=== PATIENT | female | born 1960 | race Caucasian/White ===

== ENCOUNTER → 2018-08-03 | Outpatient (CLI) | payer BC ==
[~2018-08-03] MED LIST: OMNIPAQUE 350 MG/ML, 100ML BOTTLE ONE
[2018-08-03 10:09] LABS: CREATININE 0.69 mg/dL (0.55-1.02)
== END | disposition home or self-care (01) ==
LOC: RAD 09:06
PROVIDERS: ATTEND Surgery
DX: Z01.812 Encounter for preprocedural laboratory examination (principal); C50.911 Malignant neoplasm of unspecified site of right female breast; C50.912 Malignant neoplasm of unspecified site of left female breast; K57.30 Diverticulosis of large intestine without perforation or abscess without bleeding
CPT/HCPCS: 36415; 71260; 74177; 78306; 82565; 84520; A9503; Q9967

== ENCOUNTER → 2018-08-05 | Outpatient (CLI) | payer BC ==
[~2018-08-05] MED LIST changes: +LIDOCAINE 1%, 20ML ONE; +LIDOCAINE 1%-EPI 1:100K, 20ML ONE; -OMNIPAQUE 350 MG/ML, 100ML BOTTLE ONE; +SODIUM BICARBONATE 4.0%, 5ML ONE
== END | disposition home or self-care (01) ==
LOC: CFH 11:57
PROVIDERS: ATTEND Surgery
DX: C50.912 Malignant neoplasm of unspecified site of left female breast (principal); C50.911 Malignant neoplasm of unspecified site of right female breast
CPT/HCPCS: 19285; 77066; J3490

== ENCOUNTER 2018-08-12 08:54 | Day surgery (SDC) | payer BC ==
[~2018-08-12] VITALS: Ht 170.2 cm; Wt 108.2 kg
[2018-08-12 09:28] VITALS: BP 160/88
[2018-08-12] MEDS ORDERED: ACETAMINOPHEN 500 MG TABLET PO ONE (09:30)
[2018-08-12] MEDS ORDERED: ONDANSETRON ODT 8 MG PO ONE (09:30)
[2018-08-12] MEDS ORDERED: SCOPOLAMINE PATCH, 1.5MG PATCH.TD72 TD ONE (09:30)
[2018-08-12 09:38] VITALS: BP 160/88
[2018-08-12] MEDS ORDERED: LACTATED RINGERS 1,000 ML IV SCH (09:50)
[2018-08-12] MEDS ORDERED: LEVO150T PO (10:19)
[2018-08-12] MEDS ORDERED: lidocaine patch TD (10:19)
[2018-08-12] MEDS ORDERED: CELE200C PO (10:19)
[2018-08-12] MEDS ORDERED: DULO30CA2 PO (10:19)
[2018-08-12] MEDS ORDERED: HEPARIN 1,000 UNITS/ML, 10ML ONE (10:32)
[2018-08-12] MEDS ORDERED: BUPIVACAINE/PF-EPI 0.5% 1:200K ONE (10:32)
[2018-08-12] MEDS ORDERED: MIDAZOLAM 1 MG/ML, 2ML ONE (10:42)
[2018-08-12] MEDS ORDERED: FENTANYL PF 100 MCG/2ML ONE (10:42)
[2018-08-12] MEDS ORDERED: ONDANSETRON 2MG/ML, 2ML ONE (10:43)
[2018-08-12] MEDS ORDERED: DEXAMETHASONE 4 MG/ML, 1ML ONE (10:43)
[2018-08-12] MEDS ORDERED: OXYcodone 5 MG/5 ML ORAL.SOL UDC ONE (11:50)
[2018-08-12] MEDS ORDERED: MIDAZOLAM 1 MG/ML, 2ML IV PRN (12:00)
[2018-08-12] MEDS ORDERED: EPHEDRINE 50 MG/ML, 1ML IVPush PRN (12:00)
[2018-08-12] MEDS ORDERED: PROMETHAZINE 12.5 MG SUPP PR PRN (12:00)
[2018-08-12] MEDS ORDERED: PROMETHAZINE 25 MG/ML, 1ML IV PRN (12:00)
[2018-08-12] MEDS ORDERED: MEPERIDINE/PF 25MG/0.5ML IVPush PRN (12:00)
[2018-08-12] MEDS ORDERED: ONDANSETRON 2MG/ML, 2ML IV PRN (12:00)
[2018-08-12] MEDS ORDERED: MORPHINE SULFATE 4 MG/ML, 1ML IVPush PRN (12:00)
[2018-08-12] MEDS ORDERED: HALOPERIDOL 5 MG/ML IV PRN (12:00)
[2018-08-12] MEDS ORDERED: HYDROmorphone 2 MG/ML, 1ML IVPush PRN (12:00)
[2018-08-12] MEDS ORDERED: OXYcodone 5 MG/5 ML ORAL.SOL UDC PO PRN (12:00)
[2018-08-12] MEDS ORDERED: ONDANSETRON ODT 8 MG PO PRN (12:00)
[2018-08-12] MEDS ORDERED: hydrALAzine 20 MG/ML, 1ML IV PRN (12:00)
[2018-08-12] MEDS ORDERED: LABETALOL 5MG/ML, 20ML IV PRN (12:00)
[2018-08-12] MEDS ORDERED: FENTANYL PF 100 MCG/2ML IV PRN (12:00)
[2018-08-12] MEDS ORDERED: DIAZEPAM 5 MG/ML, 2ML IVPush PRN (12:00)
[2018-08-12] MEDS ORDERED: ALBUTEROL SULFATE 2.5 MG/3 ML NPPB PRN (12:00)
[2018-08-12] MEDS ORDERED: PROPOFOL 10 MG/ML, 20ML ONE (14:40)
== END 2018-08-12 13:00 | disposition home or self-care (01) ==
LOC: OUT 08:54
PROVIDERS: ATTEND Surgery
DX: Z45.2 Encounter for adjustment and management of vascular access device (principal); C50.112 Malignant neoplasm of central portion of left female breast; C50.811 Malignant neoplasm of overlapping sites of right female breast; Z17.0 Estrogen receptor positive status [ER+]; I10 Essential (primary) hypertension; E03.9 Hypothyroidism, unspecified; J44.9 Chronic obstructive pulmonary disease, unspecified; R35.0 Frequency of micturition; E66.9 Obesity, unspecified; Z68.37 Body mass index [BMI] 37.0-37.9, adult; F17.210 Nicotine dependence, cigarettes, uncomplicated; Z86.19 Personal history of other infectious and parasitic diseases; Z79.1 Long term (current) use of non-steroidal anti-inflammatories (NSAID); Z79.890 Hormone replacement therapy; Z79.899 Other long term (current) drug therapy; Z88.0 Allergy status to penicillin; Z88.8 Allergy status to other drugs, medicaments and biological substances; Z80.0 Family history of malignant neoplasm of digestive organs; Z98.890 Other specified postprocedural states
CPT/HCPCS: 36561; 71045; 77001; 93005; C1788; J1100; J1644; J2250; J2405; J2704; J3010; J7120; Q0162

== ENCOUNTER → 2019-04-05 | Outpatient (CLI) | payer BC ==
[~2019-04-05] MED LIST changes: +CELE200C PO; +DULO30CA2 PO; +LACT1CAP37 PO; +LEVO150T PO; -LIDOCAINE 1%, 20ML ONE; -LIDOCAINE 1%-EPI 1:100K, 20ML ONE; +LORA10TA75 PO; +MULT-516 PO; +PERT420V IV; -SODIUM BICARBONATE 4.0%, 5ML ONE; +TRAS150V IV; +TURM500C4 PO; +[UNRECOGNIZED DRUG - CODE] PO; +lidocaine patch TD
[2019-04-05 14:29] LABS: BASOPHILS # (AUTO) 0.01 x10^3/uL (0-0.1); BASOPHILS % (AUTO) 0 % (0-1); EOSINOPHILS # (AUTO) 0.12 x10^3/uL (0-0.4); EOSINOPHILS % (AUTO) 2 % (1-7); LYMPHOCYTES # (AUTO) 1.29 x10^3/uL (1-3.4); LYMPHOCYTES % (AUTO) 18 % (22-44); MD NO; MEAN CORPUSCULAR HEMOGLOBIN 31.7 pg (27.0-34.8); MEAN CORPUSCULAR HGB CONC 33.2 g/dL (32.4-35.8); MEAN CORPUSCULAR VOLUME 95.4 fL (80-100); MEAN PLATELET VOLUME 6.9 fL (7.4-10.4); MONOCYTES # (AUTO) 0.48 x10^3/uL (0.2-0.8); MONOCYTES % (AUTO) 7 % (2-9); NEUTROPHILS # (AUTO) 5.34 x10^3/uL (1.8-6.8); NEUTROPHILS % (AUTO) 74 % (42-75); PLATELET COUNT 360 x10^3/uL (130-400); RED BLOOD COUNT 4.55 x10^6/uL (3.82-5.3); RED CELL DISTRIBUTION WIDTH 14.8 % (9.6-15.2)
== END | disposition home or self-care (01) ==
LOC: LAB 13:55
PROVIDERS: ATTEND Internal Medicine Hematology & Oncology
DX: C50.811 Malignant neoplasm of overlapping sites of right female breast (principal); C50.812 Malignant neoplasm of overlapping sites of left female breast; D70.1 Agranulocytosis secondary to cancer chemotherapy; K59.1 Functional diarrhea; B02.9 Zoster without complications; Z79.01 Long term (current) use of anticoagulants
CPT/HCPCS: 36415; 85025

== ENCOUNTER 2019-04-19 13:33 | Emergency (ER) | payer BC ==
[~2019-04-19] VITALS: Ht 170.2 cm; Wt 105.0 kg
[2019-04-19] MEDS ORDERED: SODIUM CHLORIDE FLUSH 10ML SYR IVF ONE (14:00)
[2019-04-19 14:22] LABS: BASOPHILS # (AUTO) 0.04 x10^3/uL (0-0.1); BASOPHILS % (AUTO) 1 % (0-1); EOSINOPHILS # (AUTO) 0.22 x10^3/uL (0-0.4); EOSINOPHILS % (AUTO) 4 % (1-7); LYMPHOCYTES # (AUTO) 1.15 x10^3/uL (1-3.4); LYMPHOCYTES % (AUTO) 19 % (22-44); MD NO; MEAN CORPUSCULAR HEMOGLOBIN 31.2 pg (27.0-34.8); MEAN CORPUSCULAR HGB CONC 33.6 g/dL (32.4-35.8); MEAN PLATELET VOLUME 7.3 fL (7.4-10.4); MONOCYTES # (AUTO) 0.53 x10^3/uL (0.2-0.8); MONOCYTES % (AUTO) 9 % (2-9); NEUTROPHILS # (AUTO) 3.99 x10^3/uL (1.8-6.8); NEUTROPHILS % (AUTO) 67 % (42-75); PLATELET COUNT 223 x10^3/uL (130-400); RED BLOOD COUNT 4.81 x10^6/uL (3.82-5.3); RED CELL DISTRIBUTION WIDTH 15.7 % (9.6-15.2)
--- NOTE | 2019-04-19 14:23 | NUR ---
TASK RN: PT AMBULATED STEADILY TO ROOM FROM LOBBY. PT W CO INTERMITTENT HAUSER X TWO WEEKS AND L ARM N/T/PAIN X SEVERAL DAYS "I FEEL LIKE I HIT IT ON SOMETHING". GROSS NEURO INTACT, PT DENIES CHANGES IN SPEECH OR VISION. DENIES N/V. HX OF BREAST CANCER WITH DOUBLE MASTECTOMY. CURRENTLY UNDERGOING CHEMO. REPORTS INTERMITTENT HAUSER SINCE START OF CHEMO. FAMILY PRESENT. ERP AT BEDSIDE FOR INITIAL ASSESSMENT. BP/SPO2/ECG MONITORING IN PLACE.
[2019-04-19 14:30] LABS: ALANINE AMINOTRANSFERASE 30 U/L (12-78); ALBUMIN 3.9 g/dL (3.4-5.0); ANION GAP 4 mmol/L (5-15); CALCIUM 9.7 mg/dL (8.5-10.1); CHLORIDE 104 mmol/L (98-107); CREATININE 0.71 mg/dL (0.55-1.02)
[2019-04-19 14:33] LABS: ALKALINE PHOSPHATASE 108 U/L (45-117); BILIRUBIN,TOTAL 0.2 mg/dL (0.2-1.0)
--- NOTE | 2019-04-19 14:37 | NUR ---
Received report from ISABELA Harry. All questions answered. Assuming care of pt at this time.
[2019-04-19 15:17] VITALS: BP 152/90
--- NOTE | 2019-04-19 15:19 | NUR ---
Pt rating 5/10 headache. Pt declines medication for pain at this time. Called CT for ETA of pt's scans, per CT there is one pt ahead of this pt.
--- NOTE | 2019-04-19 15:40 | NUR ---
Pt sent to CT on anupam.
--- NOTE | 2019-04-19 15:47 | NUR ---
Pt returning from CT to ED on anupam.
--- NOTE | 2019-04-19 17:07 | NUR ---
Patient given discharge instructions and they have confirmed that they understand the instructions. Patient ambulatory with steady gait. Pt left with d/c paperwork and all personal belongings. NADN. No needs expressed.
== END 2019-04-19 17:09 | disposition home or self-care (01) ==
LOC: ED 16:46
DX: G44.52 New daily persistent headache (NDPH) (principal); T50.995A Adverse effect of other drugs, medicaments and biological substances, initial encounter; F17.200 Nicotine dependence, unspecified, uncomplicated; Z85.3 Personal history of malignant neoplasm of breast; Y92.9 Unspecified place or not applicable
CPT/HCPCS: 36415; 70450; 71045; 72125; 80053; 85025; 93005; 99284

== ENCOUNTER 2019-05-11 08:35 | Outpatient (CLI) | payer BC | END 2019-05-11 23:59 | disposition home or self-care (01) | LOC: ROC 08:35 | PROVIDERS: ATTEND Radiology Radiation Oncology | DX: C50.411 Malignant neoplasm of upper-outer quadrant of right female breast (principal) | CPT/HCPCS: 99212; G0463 ==

== ENCOUNTER → 2019-11-17 | Outpatient (CLI) | payer BC | END | disposition home or self-care (01) | LOC: CVU 12:29 | PROVIDERS: ATTEND Internal Medicine Hematology & Oncology | DX: C50.811 Malignant neoplasm of overlapping sites of right female breast (principal); C50.812 Malignant neoplasm of overlapping sites of left female breast; I35.8 Other nonrheumatic aortic valve disorders | CPT/HCPCS: 93308; 93321; 93325 ==